=== PATIENT | female | born 1985 | race Caucasian/White ===

== ENCOUNTER 2016-10-06 19:54 | Emergency (ER) | payer OTHER ==
[~2016-10-06] VITALS: Ht 154.9 cm; Wt 102.0 kg
[~2016-10-06 19:54] MED LIST: LEVO125T3 PO; PRENTAB72 PO
[2016-10-06 19:57] VITALS: BP 158/86; PULSE 73; RESP 16; TEMP 98; O2SAT 99
[2016-10-06 20:49] LABS: BLOOD, URINE NEG (NEG); COMMENT (UR) CULT NOT INDICATED; CULTURE IF INDICATED CULT NOT INDICATED; GLUCOSE,URINE NEG (NEG); KETONE, URINE NEG (NEG); MUCUS URINE FEW /lpf (OCC); NITRITE,URINE NEG (NEG); SQUAMOUS EPITHELIAL CELL URINE 1 /hpf (0-5); URINE COLOR YELLOW (YELLW/STRAW)
--- NOTE | 2016-10-06 21:05 | PD ---
HPI Chief Complaint: Load Out Person Problem/Complaint Time Seen by Provider: 20:46 Travel History International Travel<30 days: No Contact w/Intl Traveler<30days: No Traveled to known affect area: No History of Present Illness HPI 31-year-old at 7 weeks 3 days based on LMP of 08/15/16 here with complaint of pelvic pressure and spotting for the last 2 days. Pressure is mild. No severe pain. Spotting is minimal, only when she wipes on the toilet paper. She has had 2 previous first trimester miscarriages. Patient is O+. PFSH Past Medical History Diminished Hearing: No Endocrine: Yes (hypothyroid) Immunizations Current: Yes Thyroid Disease: Yes (HYPO) Tetanus Vaccination: < 5 Years ?: LMP: 08/15/16 : 5 Para: 2 Miscarriage: 3 Past Surgical History Tonsillectomy: Yes Social History Alcohol Use: No Tobacco Use: No Substance Use: No Allergies-Medications (Allergen,Severity, Reaction): Coded Allergies: Hydrocodone (Unverified Allergy, Intermediate, Itching, 10/06/16) Codeine (Verified Adverse Reaction, Mild, VOMITING, 10/06/16) Reported Meds & Prescriptions Reported Meds & Active Scripts Active Review of Systems Except as stated in HPI: all other systems reviewed are Neg Physical Exam Narrative GENERAL: Well-appearing female in no acute distress SKIN: Warm and dry. HEAD: Normocephalic. EYES: No scleral icterus. No injection or drainage. ENT: Mucous membranes pink and moist. NECK: Supple CARDIOVASCULAR: Regular rate and rhythm. RESPIRATORY: No accessory muscle use. GASTROINTESTINAL: Abdomen soft, non-tender, nondistended. Obese MUSCULOSKELETAL: Normal gait NEUROLOGICAL: Awake and alert. Normal speech. PSYCHIATRIC: Appropriate mood and affect; insight and judgment normal. Data Data Last Documented VS Vital Signs Date Time Temp Pulse Resp B/P Pulse Ox O2 Delivery O2 Flow Rate FiO2 10/06/16 20:48 17 10/06/16 19:57 98.0 73 158/86 99 Room Air Orders Urinalysis - C+S If Indicated (10/06/16 20:14) Ed Urine Pregnancytest Poc (10/06/16 20:14) Ed Poc Ultrasound (10/06/16 ) Labs Laboratory Tests Test 10/06/16 20:30 Urine Color YELLOW Urine Turbidity CLEAR Urine pH 6.0 Urine Specific [place] 1.018 Urine Protein NEG mg/dL Urine Glucose (UA) NEG mg/dL Urine Ketones NEG mg/dL Urine Occult Blood NEG Urine Nitrite NEG Urine Bilirubin NEG Urine Urobilinogen LESS THAN 2.0 MG/DL Urine Leukocyte Esterase NEG Urine RBC 1 /hpf Urine WBC 1 /hpf Urine Squamous Epithelial 1 /hpf Cells Urine Bacteria NONE /hpf Urine Mucus FEW /lpf Microscopic Urinalysis Comment CULT NOT INDICATED MDM Medical Decision Making Medical Screen Exam Complete: Yes Emergency Medical Condition: Yes Medical Record Reviewed: Yes Differential Diagnosis 31-year-old at 7 weeks 3 days based on LMP here with complaint of abdominal pain, spotting. Differential includes , ectopic , threatened AB, missed AB, inevitable AB, UTI. Narrative Course Urine test is positive. Urinalysis unremarkable. Bedside ultrasound , please see procedure note, with IUP with heart tones with subchorionic hemorrhage. Patient and informed of same and instructed to follow-up with CLINICAL LABORATORY AIDE to establish care. Procedures Procedure Narrative Emergency Department Pelvic ultrasound was performed with patient consent. The curvilinear probe was used in the transverse and sagittal views within the suprapubic region revealing an intrauterine . heart rate was 150s. There is a moderate subchorionic hemorrhage. Diagnosis Primary Impression: Threatened Additional Impression: Subchorionic hemorrhage Qualified Code: O41.8X10 - Subchorionic hemorrhage, first trimester, not applicable or unspecified fetus Referrals: [facility] call for appointment Additional Instructions: Follow-up with CLINICAL LABORATORY AIDE to establish care. Med/Other Pt SpecificInfo: No Change to Meds Disposition: 01 DISCHARGE HOME Condition: Stable Jennifer Hanson MD Oct 06, 2016 21:05
== END 2016-10-06 21:25 | disposition home or self-care (01) ==
LOC: NEPE 19:54
DX: O20.0 Threatened abortion (principal); E03.9 Hypothyroidism, unspecified
CPT/HCPCS: 81001; 84703; 99284

== ENCOUNTER 2017-05-01 11:20 | Emergency (ER) | payer MEDICAID, OTHER ==
--- NOTE | 2017-05-01 12:08 | PD ---
HPI Chief Complaint Headache Date Seen: May 01, 2017 Travel History International Travel<30 Days: No Contact w/Intl Traveler<30Days: No Known Affected Area: No History of Present Illness HPI at 37w 0d presents with c/o a headache since last night. Patient reports taking Tylenol x 1 dose last night. Denies visual changes/RUQ pain. Reports elevated BP in the office this week. Reports lab work done yesterday, results pending. Denies ctx/LOF/VB. Good FM. Para: 2 : 5 History Past Medical History Medical History: Denies Significant Hx Past Surgical History Surgical History: No Previous Surgery Family History Family History: Negative Social History Alcohol Use: No Tobacco Use: No Substance Abuse: No Allergies-Medications (Allergen,Severity, Reaction): Coded Allergies: Hydrocodone (Unverified Allergy, Intermediate, Itching, 10/06/16) Codeine (Verified Adverse Reaction, Mild, VOMITING, 10/06/16) Physical Exam AFVSS BP 132/78, 115/66, 105/62, 111/64 Narrative GENERAL: Well-nourished, well-developed patient. SKIN: Warm and dry. HEAD: Normocephalic and atraumatic. EYES: No scleral icterus. No injection or drainage. ENT: No nasal drainage noted. Mucous membranes pink. Airway patent. NECK: Supple, trachea midline. No JVD. CARDIOVASCULAR: Regular rate and rhythm without murmurs, gallops, or rubs. RESPIRATORY: Breath sounds equal bilaterally. No accessory muscle use. BREASTS: Bilateral exam showed no masses , no retractions, no nipple discharge. ABDOMEN/GI: Abdomen soft, non-tender, bowel sounds present, no rebound, no guarding Gravid to [-] weeks size Fundal Height: [-] GENITOURINARY: External Genitalia: intact and normal in appearance BUS glands: [-] Cervix: [-] Dilatation: [-] Effacement: [-] Station: [-] Presentation: [-] Membranes: [intact or ruptured] Uterine Contractions: [-] FHT's: Category: [-] Baseline: [-] Reactive: [-] Variability: [-] Decels: [-] EXTREMITIES: No cyanosis or edema. BACK: Nontender without obvious deformity. No CVA tenderness. NEUROLOGICAL: Awake and alert. Motor and sensory grossly within normal limits. Five out of 5 muscle strength in all muscle groups. Normal speech. Data Data Vital Signs Reviewed: Yes Labs UA dip- negative MDM Interpretation(s) at 37w 0d with a Headache. Plan Will obtain serial BPs. Will administer Tylenol. Will d/c home if CHARLES improves. Close f/u with OB provider. All questions answered. Diagnosis Diagnosis: Primary Impression: 37 weeks gestation of Additional Impression: Headache in , antepartum Disposition: 01 DISCHARGE HOME Condition: Stable Sintia Suarez MD May 01, 2017 12:08
[2017-05-01] MEDS ORDERED: ACETAMINOPHEN 325 MG TAB PO ONE (12:15)
[2017-05-01] MEDS ORDERED: PNV PO (17:11)
[2017-05-01] MEDS ORDERED: LEVO112T2 PO ×2 (17:11→18:10)
[2017-05-01] MEDS ORDERED: oxyCODONE/ACETAMINOPHEN 5 MG/325 MG TAB PO ONE (20:00)
== END 2017-05-01 12:47 | disposition home or self-care (01) ==
LOC: HOBED 11:20
DX: O26.893 Other specified pregnancy related conditions, third trimester (principal); R51 Headache; Z3A.37 37 weeks gestation of pregnancy
CPT/HCPCS: 59025; 99282

== ENCOUNTER 2017-05-01 14:04 | Inpatient (IN) | payer MEDICAID ==
[~2017-05-01] VITALS: Ht 154.9 cm; Wt 108.0 kg
[2017-05-01] VITALS (19 sets, daily range): BP systolic 124–148; BP diastolic 69–90; PULSE 79–94; RESP 15–18; TEMP 97.5–97.9
[2017-05-01] MEDS: LACTATED RINGER'S 1000 ML INJ 1,000 ML IV SCH ×4 (14:50→19:59)
[2017-05-01] MEDS ORDERED: ONDANSETRON ODT 4 MG TAB PO PRN (15:00)
[2017-05-01] MEDS ORDERED: SODIUM CHLORIDE 0.9% FLUSH 5 ML FLUSH IV PRN (15:00)
[2017-05-01] MEDS ORDERED: CALCIUM GLUCONATE 10% 1 GM/10 ML VIAL IV PUSH PRN (15:00)
[2017-05-01] MEDS ORDERED: ONDANSETRON HCL 4 MG/2 ML VIAL IV PRN (15:00)
[2017-05-01] MEDS ORDERED: DOCUSATE SODIUM 100 MG CAP PO PRN (15:00)
[2017-05-01] MEDS ORDERED: ZOLPIDEM TARTRATE 5 MG TAB PO PRN (15:00)
--- NOTE | 2017-05-01 15:08 | HHI.HP ---
HPI Chief Complaint elevated BP. Date Seen: Apr 29, 2017 Travel History International Travel<30 Days: No Contact w/Intl Traveler<30Days: No Known Affected Area: No History of Present Illness HPI Pt is a 31 Yo with uip at 37 wk who presented to ED today due to BP at home 160/100. She also had a headache since last night. While on bedrest her BP was normal, udip neg for protein. she received tylenol and had some improvement in CHARLES and was d/c home. PT called office and was very upset; does not feel right and would like further evaluation. She was seen in our office 2 days ago with BP 130/78, no ruq pain, blurry vision or CHARLES, tr protein. She had PIH labs that day that were normal; P:C 0.17. Good FM, no contractions Para: 2 : 5 Miscarriage: 2 History Past Medical History Narrative Medical hypothyroidism, obesity Obstetric History Obstetric History 2 ftsvd largest child 7lb 6 oz, 2 miscarriages Past Surgical History Narrative Surgical tonsillectomy, wrist surgery Family History Family History: Negative Social History Alcohol Use: No Tobacco Use: No Substance Abuse: No Allergies-Medications (Allergen,Severity, Reaction): Coded Allergies: Hydrocodone (Unverified Allergy, Intermediate, Itching, 10/06/16) Codeine (Verified Adverse Reaction, Mild, VOMITING, 10/06/16) Review of Systems General / Constitutional: No: Fever, Weight Gain, Chills, Other Eyes: No: Diploplia, Blurred Vision, Visual changes, Pain, Photophobia HENT: Headaches, No: Vertigo, Lightheadedness Cardiovascular: No: Irregular Rhythm, Chest Pain or Discomfort, Palpitations, Tachycardia, Syncope, Varicosities, Edema, Cyanosis Respiratory: No: Cough, Short of Breath, Other Gastrointestinal: No: Nausea, Vomiting, Diarrhea Genitourinary: No: Decreased Urinary Output, Oliguria Musculoskeletal: No: Limited ROM, Weakness, Cramping, Edema, Pain Skin: No Rash, No Itching, No Dryness, No Lumps, No Change in Pigmentation, No Change in Nails, No Alopecia, No Lesions Neurologic: No: Weakness, Dizziness, Syncope, Focal Abnormalities, Coordination Problem, Headache, Slurred Speech, Seizures Psychiatric: No: Depression, Suicidal Ideations, Homicidal Ideation Endocrine: No: Heat Intolerance, Cold Intolerance, Polydipsia, Polyuria, Other Physical Exam Narrative GENERAL: Well-nourished, well-developed patient. SKIN: Warm and dry. HEAD: Normocephalic and atraumatic. EYES: No scleral icterus. No injection or drainage. ENT: No nasal drainage noted. Mucous membranes pink. Airway patent. NECK: Supple, trachea midline. No JVD. CARDIOVASCULAR: Regular rate and rhythm without murmurs, gallops, or rubs. RESPIRATORY: Breath sounds equal bilaterally. No accessory muscle use. ABDOMEN/GI: Abdomen soft, non-tender, bowel sounds present, no rebound, no guarding Gravid to 37weeks size Fundal Height: 37cm[-] GENITOURINARY: Presentation:V Membranes: [intact Uterine Contractions: [-] FHT's: Category:I EXTREMITIES: No cyanosis. 1+ edema ble. BACK: Nontender without obvious deformity. No CVA tenderness. NEUROLOGICAL: Awake and alert. Motor and sensory grossly within normal limits. Five out of 5 muscle strength in all muscle groups. Normal speech. Note: exam from office visit 04/29/17. Pt has had additional physical exam documented today from Dr. Suarez in [facility] visit Data Data Vital Signs Reviewed: Yes Orders Place In Observation (05/01/17 ) Vital Signs (Adult) Q5MX4,Q15MX4,Q30MX2,Q1H (05/01/17 14:50) Activity Bed Rest (05/01/17 14:50) Intake + Output Q1H (05/01/17 14:50) Notify Dr. Camejo (05/01/17 14:50) Heart CONTINUOUS (05/01/17 14:50) Urinary Catheter Management JOMAR.Q8H (05/01/17 14:50) ^ Check Deep Tendon Reflexes Q1H (05/01/17 14:50) Lactated Ringer's 1000 Ml Inj (Lr 1000 M (05/01/17 14:50) Sodium Chloride 0.9% Flush (Ns Flush) (05/01/17 15:00) Sodium Chloride 0.9% Flush (Ns Flush) (05/01/17 21:00) Calcium Gluconate Inj (Calcium Gluconate (05/01/17 15:00) Acetaminophen (Tylenol) (05/01/17 15:00) Ondansetron Inj (Zofran Inj) (05/01/17 15:00) Ondansetron Odt (Zofran Odt) (05/01/17 15:00) Docusate Sodium (Colace) (05/01/17 15:00) Gdypoiel-Qbr-Pkphr-Iron Prenat (Stuartna (05/02/17 09:00) Zolpidem (Ambien) (05/01/17 15:00) Cbc No Diff, Includes Plts (05/01/17 14:50) Cbc No Diff, Includes Plts (05/02/17 06:00) Comprehensive Metabolic Panel (05/01/17 14:50) Comprehensive Metabolic Panel (05/02/17 06:00) Uric Acid (05/01/17 14:50) Uric Acid (05/02/17 06:00) Urinalysis - C+S If Indicated (05/01/17 14:50) Total Protein 24hr Urine (05/01/17 14:50) Creatinine 24 Hr Urine (05/01/17 14:50) Us Ob Bpp Wo Nst (05/01/17 14:50) Diet Regular Basic (05/01/17 Dinner) Levothyroxine (Synthroid) (05/02/17 06:00) Protein Creat Ratio, Random Ur (05/01/17 14:50) Specimen To Be Collected PRN (05/01/17 14:50) Assessment/Plan Problem List: (1) 37 weeks gestation of (2) Headache in , antepartum (3) Gestational [-induced] hypertension without significant proteinuria , third trimester (4) Hypothyroidism Assessment and Plan 31 yo with iup at 37 wk. Pt with elevated BP at home and headache, will admit to r/o pre-eclampsia 1) R/O Pre-E- pih labs, P:C ratio, and 24 hour urine collection ordered. Will induce if Pre- eclampsia or GHTN confirmed 2) hypothyroidism- synthroid 112 micrograms 3) GBS + will need pcn prophy 4) Fetus- will order BPP. [facility] on 04/29/17 Discharge Planning Possible d/c tomorrow Ora Mccall MD May 01, 2017 15:08
[2017-05-01] MEDS ORDERED: LACTATED RINGER'S 1000 ML INJ 1,000 ML IV PRN (15:47)
[2017-05-01] MEDS ORDERED: DINOPROSTONE 10 MG VAG INSERT VAGINAL ONE (16:00)
[2017-05-01] MEDS ORDERED: LIDOCAINE HCL 1% 50 ML VIAL I-DERMAL PRN (16:00)
[2017-05-01] MEDS ORDERED: PENICILLIN G POTASSIUM INJ 5,000,000 UNITS in SODIUM CHLORIDE 0.9% INJ 100 ML IV ONE (16:00)
[2017-05-01] MEDS ORDERED: CITRIC ACID-SODIUM CITRATE LIQ 30 ML UDC PO SCH (16:00)
[2017-05-01] MEDS ORDERED: SODIUM CHLORID 0.9% 500 ML INJ 500 ML IV PRN (16:00)
[2017-05-01] MEDS ORDERED: SODIUM CHLOR 0.9% 1000 ML INJ 1,000 ML IV PRN (16:07)
[2017-05-01] MEDS ORDERED: PNV PO (17:11)
[2017-05-01] MEDS ORDERED: LEVO112T2 PO ×2 (17:11→18:10)
[2017-05-01] MEDS: ACETAMINOPHEN 325 MG TAB PO PRN (17:13)
[2017-05-01 17:39] LABS: HEMATOCRIT 34.4 % (35.0-46.0); MEAN CELL VOLUME 86.2 FL (80.0-100.0); MEAN CORPUSCULAR HEMOGLOBIN 28.5 PG (27.0-34.0); MEAN CORPUSCULAR HGB CONC 33.1 % (32.0-36.0); PLATELET COUNT 261 TH/MM3 (150-450); RED BLOOD COUNT 3.99 MIL/MM3 (4.00-5.30); RED CELL DISTRIBUTION WIDTH 14.2 % (11.6-17.2); REVIEW FLAG FINAL; WHITE BLOOD COUNT 11.3 TH/MM3 (4.0-11.0)
[2017-05-01 19:39] LABS: ANION GAP 9 MEQ/L (5-15); BICARBONATE 24.5 MEQ/L (21.0-32.0); BLOOD UREA NITROGEN 8 MG/DL (7-18); CHLORIDE 106 MEQ/L (98-107); GLOMERULAR FILTRATION RATE 219 ML/MIN (>89); POTASSIUM 3.3 MEQ/L (3.5-5.1); SODIUM (NA) 139 MEQ/L (136-145); URIC ACID 3.4 MG/DL (2.6-6.0)
[2017-05-01 19:41] LABS: ALT (GPT) 18 U/L (10-53); AST (GOT) 14 U/L (15-37)
[2017-05-01 19:43] LABS: ALKALINE PHOSPHATASE 107 U/L (45-117); TOTAL BILIRUBIN ADULT 0.2 MG/DL (0.2-1.0)
[2017-05-01] MEDS ORDERED: oxyCODONE/ACETAMINOPHEN 5 MG/325 MG TAB PO ONE (20:00)
[2017-05-01] MEDS: SODIUM CHLORIDE 0.9% FLUSH 5 ML FLUSH IV SCH (21:00)
[2017-05-01 21:58] LABS: BLOOD, URINE NEG (NEG); CALCIUM OXALATE CRYSTALS,URINE FEW /hpf; COMMENT (UR) CATH-CULT NOT IND; CULTURE IF INDICATED CATH CULTURE NOT IND; GLUCOSE,URINE NEG (NEG); KETONE, URINE NEG (NEG); MUCUS URINE FEW /lpf (OCC); NITRITE,URINE NEG (NEG); PH, URINE 6.5 (5.0-8.5); SQUAMOUS EPITHELIAL CELL URINE 4 /hpf (0-5); URINE COLOR YELLOW (YELLW/STRAW)
[2017-05-02] VITALS (58 sets, daily range): BP systolic 103–171; BP diastolic 53–93; PULSE 45–95; RESP 16–18; TEMP 97.8–98.3
[2017-05-02] MEDS: ACETAMINOPHEN 325 MG TAB PO PRN (00:29)
[2017-05-02] MEDS: PENICILLIN G POTASSIUM INJ 2,500,000 UNITS in SODIUM CHLORIDE 0.9% INJ 100 ML IV SCH ×6 (04:00→12:16)
[2017-05-02] MEDS: LACTATED RINGER'S 1000 ML INJ 1,000 ML IV SCH ×3 (04:06→12:17)
[2017-05-02] MEDS ORDERED: LEVOTHYROXINE SODIUM 112 MCG TAB PO SCH (06:00)
[2017-05-02] MEDS ORDERED: OXYTOCIN 30 UNITS/NS 500ML PREMIX IV SCH (07:15)
--- NOTE | 2017-05-02 08:11 | PD.LABORPN ---
Subjective Subjective pt undergoing induction due to elevated BP, low BANG, s/p cervidil, for pitocin today, on PCN proph Objective Vital Signs Vital Signs Date Time Temp Pulse Resp B/P Pulse Ox O2 Delivery O2 Flow Rate FiO2 05/02/17 06:41 90 126/77 05/02/17 06:41 18 05/02/17 04:10 92 131/75 05/02/17 04:09 98.2 05/02/17 04:05 18 05/02/17 02:18 88 130/85 05/02/17 02:15 18 05/02/17 00:22 82 124/67 05/02/17 00:21 98.0 05/02/17 00:21 18 05/02/17 00:20 75 05/02/17 00:15 73 Objective Pelvic Exam: Cervix: [-] deferred Dilatation: [-] Effacement: [-] Station: [-] Presentation: [-] Membranes: [intact or ruptured] Uterine Contractions: [-] irreg FHT's: Category: [-] 1 Baseline: [-] Reactive: [-] R Variability: [-] Decels: [-] Assessment/Plan Problem List: (1) 37 weeks gestation of (2) Headache in , antepartum (3) Gestational [-induced] hypertension without significant proteinuria , third trimester (4) Hypothyroidism (5) Oligohydramnios antepartum Assessment and Plan IUP at 37 wks, PIH, oligo, s/p cervidil for pitocin, PCN proph Anushka Beal MD May 02, 2017 08:11
[2017-05-02] MEDS: SODIUM CHLORIDE 0.9% FLUSH 5 ML FLUSH IV SCH (09:00)
[2017-05-02] MEDS ORDERED: MULTIVIT/MIN/PREN/FOL AC/IRON PRENATAL TAB PO SCH (09:00)
[2017-05-02] MEDS ORDERED: MINERAL OIL 10 ML VIAL TOPICAL PRN (11:30)
[2017-05-02] MEDS ORDERED: LIDOCAINE HCL 1% 50 ML VIAL INFIL PRN (11:30)
[2017-05-02] MEDS ORDERED: OXYTOCIN 30 UNITS 500ML PREMIX IV ONE (11:30)
[2017-05-02] MEDS ORDERED: fentaNYL 2MCG-BUPIV 0.125% INJ 100 ML ONE (12:30)
[2017-05-02] MEDS ORDERED: ACETAMINOPHEN 325 MG TAB PO PRN (14:45)
[2017-05-02] MEDS ORDERED: BENZOCAINE 20% TOPICAL SPRAY 60 ML CAN TOPICAL PRN (14:45)
[2017-05-02] MEDS ORDERED: ZOLPIDEM TARTRATE 5 MG TAB PO PRN (14:45)
[2017-05-02] MEDS ORDERED: ONDANSETRON ODT 4 MG TAB PO PRN (14:45)
[2017-05-02] MEDS ORDERED: DOCUSATE SODIUM 50 MG/SENNA 8.6 MG TAB PO PRN (14:45)
[2017-05-02] MEDS ORDERED: OXYTOCIN 30 UNITS-500ML PREMIX 500 ML IV SCH (14:45)
[2017-05-02] MEDS ORDERED: ALUMINUM/MAGNESIUM/SIMETH 30 ML CUP PO PRN (14:45)
[2017-05-02] MEDS ORDERED: WITCH HAZEL 50%/GLYCERIN 12.5% 40 PAD JAR TOPICAL PRN (14:45)
[2017-05-02] MEDS ORDERED: SODIUM CHLORIDE 0.9% FLUSH 10 ML FLUSH IV FLUSH PRN (14:45)
--- NOTE | 2017-05-02 14:46 | PD.OB.DELI ---
Anesthesia: Epidural Episiotomy: None Vaginal Delivery: Normal Presentation: Occiput anterior Nuchal Cord: None Delayed cord clamping (45 sec): Yes Infant: Female One Minute : 9 Five Minute : 9 Weight: 6-4 Placenta: Spontaneous delivery Laceration: No lacerations Estimated blood loss: 350cc Anushka Beal MD May 02, 2017 14:46
[2017-05-02] MEDS ORDERED: DIPHTH/TETANUS/ACEL PERTUSSIS (BOOSTER) 0.5 ML VIAL/PFS IM ONE (16:00)
[2017-05-02] MEDS ORDERED: MEASLES, MUMPS, RUBELLA VACCINE 0.5 ML VIAL SQ ONE (16:00)
[2017-05-02] MEDS ORDERED: fentaNYL 2MCG-BUPIV 0.125% 100 ML EPIDURAL SCH (16:45)
[2017-05-02] MEDS ORDERED: ePHEDrine/NS 25 MG/5 ML SYR IV PRN (16:45)
[2017-05-02] MEDS ORDERED: DO NOT ADMINISTER ANTICOAGULANTS PRN (16:45)
[2017-05-02] MEDS ORDERED: NO SYSTEM NARCOTICS PRN (16:45)
[2017-05-02] MEDS ORDERED: SODIUM CHLORIDE 0.9% FLUSH 10 ML FLUSH IV FLUSH SCH (21:00)
[2017-05-02] MEDS: IBUPROFEN 600 MG TAB PO PRN (22:11)
[2017-05-03] MEDS: LEVOTHYROXINE SODIUM 112 MCG TAB PO SCH (05:55)
[2017-05-03] MEDS: IBUPROFEN 600 MG TAB PO PRN ×3 (05:56→22:23)
--- NOTE | 2017-05-03 07:50 | HHI.OB ---
Subjective Post Day: 1 Remarks Doing well, pain is controlled baby is doing well Bleeding is normal Tolerating diet Objective Vitals/I&O Vital Signs Date Time Temp Pulse Resp B/P Pulse Ox O2 Delivery O2 Flow Rate FiO2 05/02/17 21:30 98.3 79 18 139/73 05/02/17 17:36 98.1 72 16 140/68 05/02/17 16:31 78 126/66 05/02/17 16:01 76 120/66 05/02/17 15:46 72 119/83 05/02/17 15:31 74 109/72 05/02/17 15:16 70 119/68 05/02/17 15:05 78 108/59 05/02/17 15:04 97.8 05/02/17 14:46 77 123/72 05/02/17 14:31 87 112/55 05/02/17 14:16 89 129/86 05/02/17 14:01 85 119/77 05/02/17 13:46 76 115/71 05/02/17 13:31 49 103/63 05/02/17 13:26 82 121/73 05/02/17 13:21 45 115/53 05/02/17 13:20 80 05/02/17 13:16 82 119/69 05/02/17 13:15 82 05/02/17 13:11 85 122/77 05/02/17 13:10 70 05/02/17 13:06 85 109/69 05/02/17 13:05 75 05/02/17 13:01 80 122/57 05/02/17 13:00 81 05/02/17 12:56 147/92 05/02/17 12:56 82 05/02/17 12:55 92 05/02/17 12:51 80 142/84 05/02/17 12:50 77 05/02/17 12:47 73 171/93 05/02/17 12:45 90 05/02/17 12:30 98.1 05/02/17 12:15 18 05/02/17 12:01 78 132/82 05/02/17 11:21 83 139/83 05/02/17 10:41 82 156/93 05/02/17 10:27 86 144/86 05/02/17 10:09 18 05/02/17 10:01 77 134/79 05/02/17 09:41 86 124/77 05/02/17 09:21 80 132/83 05/02/17 09:01 88 134/88 05/02/17 08:41 88 120/72 05/02/17 08:22 89 124/85 05/02/17 08:08 97.9 18 05/02/17 08:04 95 128/83 Objective Remarks GENERAL: Well-nourished, well-developed patient. CARDIOVASCULAR: Regular rate and rhythm without murmurs, gallops, or rubs. RESPIRATORY: Breath sounds equal bilaterally. No accessory muscle use. ABDOMEN/GI: Abdomen soft, non-tender. Fundus: Firm, non-tender at umbilicus. GENITOURINARY: Light to moderate bleeding. EXTREMITIES: No cyanosis or edema, non-tender, without signs of DVT. Medications and IVs Current Medications Medications (Trade) Dose Ordered Sig/Angelina Route Start Time Stop Time Status Last Admin (NS Flush) 2 ml BID IV FLUSH 05/02/17 21:00 (NS Flush) 2 ml UNSCH PRN IV FLUSH 05/02/17 14:45 05/02/17 16:11 (Tylenol) 650 mg Q4H PRN PO 05/02/17 14:45 (Motrin) 600 mg Q6H PRN PO 05/02/17 14:45 05/03/17 05:56 (Americaine 20% Top Spr) 1 spray Q4H PRN TOPICAL 05/02/17 14:45 (Tucks Pads) 1 applic QID PRN TOPICAL 05/02/17 14:45 (Parvin-Colace) 2 tab Q12H PRN PO 05/02/17 14:45 (Ambien) 5 mg HS PRN PO 05/02/17 14:45 (Mag-Al Plus Susp Liq) 15 ml Q8H PRN PO 05/02/17 14:45 (Zofran Odt) 4 mg Q6H PRN PO 05/02/17 14:45 Miscellaneous Information No systemic narcotics to be given except... UNSCH PRN .XX 05/02/17 16:45 05/03/17 16:44 Miscellaneous Information DO NOT ADMINISTER ANY ANTICOAGUL... UNSCH PRN .XX 05/02/17 16:45 05/03/17 16:44 (fentaNYL 2MCG-BUPIV 0.125% INJ) 100 ml @ 0 mls/hr TITRATE EPIDURAL 05/02/17 16:45 (ePHEDrine/NS 25 MG/5 ML SYR) 10 mg UNSCH PRN IV 05/02/17 16:45 05/03/17 16:44 (Synthroid) 112 mcg DAILY@0600 PO 05/03/17 06:00 05/03/17 05:55 Assessment/Plan Problem List: (1) 37 weeks gestation of (2) Headache in , antepartum (3) Gestational [-induced] hypertension without significant proteinuria , third trimester (4) Hypothyroidism (5) Oligohydramnios antepartum Assessment and Plan PPD#1 BP are normal today Routine care Keep til tomorrow secondary to GBS Discharge Planning Possible d/c tomorrow Brandon Tobias MD May 03, 2017 07:50
[2017-05-03] MEDS ORDERED: IBUP-232 PO (07:55)
--- NOTE | 2017-05-03 07:55 | HHI.DCPOC ---
Discharge Care Plan Diagnosis: (1) Oligohydramnios antepartum (2) 37 weeks gestation of (3) Hypothyroidism Report Symptoms to Your Doctor -Temperature above 100.5 degrees -Redness, of incision or excessive or foul smelling drainage -Unusual pain or calf pain -Increased vaginal bleeding -Painful or difficulty urinating -Feelings of extreme sadness or anxiety after 2 weeks Goals to Promote Your Health * To prevent worsening of your condition and complications * To maintain your health at the optimal level Directions to Meet Your Goals Take your medications as prescribed Follow your dietary instruction Follow activity as directed Ensure plenty of rest for recovery Drink fluids for hydration Keep your appointments as scheduled Take your immunizations and boosters as scheduled If your symptoms worsen call your PCP, if no PCP go to Urgent Care Center or Emergency Room Smoking is Dangerous to Your Health. Avoid second hand smoke Call the 24-hour crisis hotline for domestic abuse at Brandon Tobias MD May 03, 2017 07:55
[2017-05-03] MEDS ORDERED: [UNRECOGNIZED DRUG - OTHER] SQ ONE (08:00)
[2017-05-03 08:15] VITALS: BP 144/88; PULSE 87; RESP 16; TEMP 98.7
[2017-05-03 21:15] VITALS: BP 116/74; PULSE 84; RESP 18; TEMP 98.1
[2017-05-04] MEDS: IBUPROFEN 600 MG TAB PO PRN (04:04)
[2017-05-04] MEDS: LEVOTHYROXINE SODIUM 112 MCG TAB PO SCH (05:31)
[2017-05-04 08:15] VITALS: BP 125/86; PULSE 76; RESP 18; TEMP 97.8; O2SAT 97
== END 2017-05-04 12:55 | disposition home or self-care (01) | DRG 775 ==
LOC: H2EA 14:04 → OBSVTOIN 15:39 → H2EA 15:42 → H1EA 05-02 17:03
PROVIDERS: ADMIT Obstetrics & Gynecology; ATTEND Obstetrics & Gynecology
PROC: 10E0XZZ Delivery of Products of Conception, External Approach (ICD-10-PCS; principal; 2017-05-02)
DX: O41.03X0 Oligohydramnios, third trimester, not applicable or unspecified (principal); Z68.42 Body mass index [BMI] 45.0-49.9, adult; O99.284 Endocrine, nutritional and metabolic diseases complicating childbirth; Z37.0 Single live birth; E03.9 Hypothyroidism, unspecified; Z3A.37 37 weeks gestation of pregnancy; O99.214 Obesity complicating childbirth; E66.9 Obesity, unspecified; O13.4 Gestational [pregnancy-induced] hypertension without significant proteinuria, complicating childbirth
CPT/HCPCS: 76816; 76819; 76820; 80053; 81001; 82570; 84156; 84550; 85027; 86900; 86901; 90707; 90715; J2540; J2590; J3010; J7120